=== PATIENT | male | born 1990 ===

== ENCOUNTER 2018-04-11 23:34 | Emergency (ER) | payer SELFPAY ==
[2018-04-11 23:47] VITALS: BP 132/88; PULSE 100; RESP 18; TEMP 98.7; O2SAT 97
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
== END 2018-04-12 01:46 | disposition home or self-care (01) ==
LOC: C.ER 23:34
DX: S06.0X0A Concussion without loss of consciousness, initial encounter (principal); W19.XXXA Unspecified fall, initial encounter; Y92.238 Other place in hospital as the place of occurrence of the external cause